=== PATIENT | male | born 1990 | race Caucasian/White ===

== ENCOUNTER 2017-10-27 07:17 | Day surgery (SDC) | payer OTHER ==
[~2017-10-27 07:17] MED LIST: BALANCED SALT SOLN 15 ML OPH IRRIG
[2017-10-27] MEDS ORDERED: TOBRAMYCIN/DEXAMETH 3.5 GM OPH OINT (07:49)
[2017-10-27] MEDS ORDERED: PHENYLephrine 10% 5 ML OPH (07:49)
[2017-10-27] MEDS ORDERED: DIPHENHYDRAMINE 50 MG INJ IV (09:00)
[2017-10-27] MEDS ORDERED: OXYCODONE/ACETAMINOPHEN (5/325) TAB PO (09:00)
[2017-10-27] MEDS ORDERED: HYDROmorphONE (0.2 MG/ML) 10ML SYG IV ×3 (09:00)
[2017-10-27] MEDS ORDERED: PROCHLORPERAZINE 10 MG INJ IV (09:00)
[2017-10-27] MEDS ORDERED: FENTAnyl 50 MCG/ML VIAL IV ×2 (09:00)
[2017-10-27] MEDS ORDERED: LIDOCAINE 2% (SDV) 5 ML INJ (09:22)
[2017-10-27] MEDS ORDERED: SUCCINYLCHOLINE CHLORIDE 100 MG/5 ML SYG IV (09:22)
[2017-10-27] MEDS ORDERED: PROPOFOL 20 ML (09:22)
[2017-10-27] MEDS ORDERED: MIDAZOLAM 1 MG/ML 2 ML INJ (09:22)
[2017-10-27] MEDS ORDERED: FENTAnyl 50 MCG/ML VIAL (09:23)
[2017-10-27] MEDS ORDERED: GLYCOPYRROLATE 0.4 MG INJ (09:23)
[2017-10-27] MEDS: PHENYLephrine 10% 5 ML OPH OPER (09:35)
[2017-10-27] MEDS ORDERED: PHENYLephrine (100 MCG/ML) 5ML SYG (09:41)
[2017-10-27] MEDS ORDERED: DEXAMETHASONE 4 MG/ML 1 ML INJ (09:42)
[2017-10-27] MEDS ORDERED: FAMOTIDINE 20 MG INJ (09:42)
[2017-10-27] MEDS ORDERED: ONDANSETRON 4 MG INJ (09:42)
[2017-10-27] MEDS ORDERED: METOCLOPRAMIDE 10 MG INJ (09:42)
[2017-10-27] MEDS ORDERED: EPHEDrine SULFATE 50 MG/5 ML SYG (10:13)
[2017-10-27] MEDS: MEPERIDINE 25 MG INJ IV (11:07)
[2017-10-27] MEDS: ONDANSETRON 4 MG INJ IV (11:08)
[2017-10-27] MEDS: FENTAnyl 50 MCG/ML VIAL IV (11:28)
== END 2017-10-27 12:30 | disposition home or self-care (01) ==
LOC: SDS 07:17
DX: H50.00 Unspecified esotropia (principal)
CPT/HCPCS: 67311